=== PATIENT | male | born 1970 | race Caucasian/White ===

== ENCOUNTER 2017-02-14 19:11 | Emergency (ER) | payer BC ==
[~2017-02-14 19:11] MED LIST: AMARYL2 PO; ASAB PO; CELEBREX1 PO; CELEBREX2 PO; DIL2TAB PO; DIL4TAB PO; FLEXERIL5 MG PO; FLOMAX4 PO; GLIMEPIRIDE; GLUCOPHAGE1000 MG PO; LOTE10 PO; LOTENSIN HCT1 TAB PO; MSCONTIN PO; NORCO1 TA1 PO; PROAIR HFA INH; TRAZ50 PO; V5 PO
[2017-02-14 19:43] LABS: BASOPHILS 0.2 %; BASOPHILS ABSOLUTE 0.02 10/3/uL (0.0-0.16); EOSINOPHILS 2.7 %; EOSINOPHILS ABSOLUTE 0.23 10/3/uL (0.0-0.53); ER CBC TAT 0 Hrs 11 Mins; HEMOGLOBIN 15.7 g/dL (13.6-17.8); IMMATURE GRANULOCYTES 0.3 %; IMMATURE GRANULOCYTES ABSOLUTE 0.03 10/3/uL (0.0-0.11); LYMPHOCYTES 29.4 %; LYMPHOCYTES ABSOLUTE 2.52 10/3/uL (0.67-4.30); MEAN CORPUS HGB CONC 35.7 g/dL (32.0-36.0); MEAN CORPUSCULAR HEMOGLOB 30.4 pg (26.0-34.0); MEAN PLATELET VOLUME 9.6 fL (9.2-13.0); NEUTROPHILS 60.4 %; NEUTROPHILS ABSOLUTE 5.18 10/3/uL (2.02-8.40); PLATELET COUNT 211 10/3/uL (150-400); RBC DISTRIBUTION WIDTH 13.5 % (12.0-16.0); RED CELL COUNT 5.16 10/6/uL (4.7-6.1); WHITE BLOOD CELLS 8.6 10/3/uL (4.5-10.5)
[2017-02-14 19:44] LABS: MANUAL DIFF NO %; MEAN CORPUSCULAR VOLUME 85.3 fL (80-100)
[2017-02-14 20:02] LABS: BUN (BLOOD UREA NITROGEN) 17 MG/DL (6-23); CALCIUM, SERUM 9.1 MG/DL (8.5-10.4); CHEST PAIN PROFILE TAT 0 Hrs 30 Mins; CHLORIDE, SERUM 103 MMOL/L (96-112); CREATININE 1.23 MG/DL (0.70-1.30); GFR AFRICAN AMERICAN 82 ML/MIN (>=60); GFR NON AFRICAN AMERICAN 71 ML/MIN (>=60); SODIUM, SERUM 139 MMOL/L (135-148); TROPONIN I <0.02 NG/ML (<0.05)
[2017-02-14 20:04] LABS: CO2 (CARBON DIOXIDE) 33 MMOL/L (24-34); GLUCOSE, SERUM 144 MG/DL (60-99)
[2017-02-14 20:09] LABS: INTERNATIONAL NORMAL RATI 0.9 UNITS (-); PROTIME (NOT ORD) 12.4 SEC (12.0-14.5)
[2017-02-14 20:14] LABS: PARTIAL THROMBO TIME 22.9 SEC (22.5-37.2)
[2017-02-15 01:44] LABS: TROPONIN I <0.02 NG/ML (<0.05)
[2017-02-15 01:49] LABS: C-REACTIVE PROTEIN < 2.9 MG/L (<8.0)
[2017-02-16 21:01] LABS: LYME AB SCREEN RESULT Negative (NEG)
[2017-02-17 15:14] LABS: ROCKY MTN SPOTTED FEVER AB IGG <1:64 (LTD64); ROCKY MTN SPOTTED FEVER AB IGM <1:64 (LTD64)
[2017-07-05] MEDS ORDERED: TRADJENTA5 MG PO (13:07)
[2017-07-05] MEDS ORDERED: ZANAFLEX 4 MG TA4 MG PO (13:08)
== END 2017-02-15 04:29 | disposition home or self-care (01) ==
LOC: ER 19:11
PROVIDERS: Emergency Medicine; Nurse Practitioner Acute Care
DX: T14.8 Other injury of unspecified body region (principal); R51 Headache; G47.30 Sleep apnea, unspecified; I10 Essential (primary) hypertension; E11.9 Type 2 diabetes mellitus without complications; Z88.1 Allergy status to other antibiotic agents; Z79.84 Long term (current) use of oral hypoglycemic drugs; Z79.82 Long term (current) use of aspirin; Z79.899 Other long term (current) drug therapy; W57.XXXA Bitten or stung by nonvenomous insect and other nonvenomous arthropods, initial encounter
CPT/HCPCS: 70450; 71020; 80048; 83735; 84484; 85025; 85610; 85652; 85730; 86140; 86618; 86757; 86757-59; 93005; 96374; 96375; 99285; A9270-GY; J1200; J1885; J2405; J2765